=== PATIENT | female | born 1940 | race Caucasian/White ===

== ENCOUNTER 2016-08-17 11:05 | Emergency (ER) | payer OTHER ==
[~2016-08-17] VITALS: Ht 157.5 cm; Wt 61.0 kg
[~2016-08-17 11:05] MED LIST: ACID1GRA2 PO; ASPI-515 PO; BISA5TAB38 PO; BUPR100T11; BUPR150T6 PO; CALC-440 PO; CARV3.1212 PO; CLON-364 PO; CYCL5TAB; DIAZ10TA4 PO; GABA100C8 PO; GLYC2TAB13 PO; GUAI100G2 PO; HYDR1TAB PO; HYOS0.127; IRON18TA PO; LEVO500T33 PO; LISI-167 PO; LISI5TAB7 PO; MAGN400T26 PO; METF850T2 PO; MULT-658 PO; OMEP-110 PO; PNV1TAB.5; PRAM1TAB5 PO; ROPI0.5T2 PO; SENN15TA10; SIMV20TA3 PO; [UNRECOGNIZED DRUG - REMARK] PO
[2016-08-17 11:07] VITALS: BP 128/70
== END 2016-08-17 12:45 | disposition home or self-care (01) ==
LOC: ED 12:15
DX: S29.012A Strain of muscle and tendon of back wall of thorax, initial encounter (principal); S20.211A Contusion of right front wall of thorax, initial encounter; J44.9 Chronic obstructive pulmonary disease, unspecified; I10 Essential (primary) hypertension; E11.9 Type 2 diabetes mellitus without complications; I25.2 Old myocardial infarction; W01.0XXA Fall on same level from slipping, tripping and stumbling without subsequent striking against object, initial encounter; Y93.89 Activity, other specified; Y92.009 Unspecified place in unspecified non-institutional (private) residence as the place of occurrence of the external cause; Y99.9 Unspecified external cause status
CPT/HCPCS: 72072; 99284

== ENCOUNTER 2017-02-03 19:13 | Emergency (ER) | payer OTHER ==
[~2017-02-03] VITALS: Ht 160 cm; Wt 56.0 kg
[~2017-02-03 19:13] MED LIST changes: -ACID1GRA2 PO; +ACID1GRA3 PO; +GABA-826 PO; -GABA100C8 PO; -GLYC2TAB13 PO; +GLYC2TAB21 PO; +HYOS0.1268; -HYOS0.127; -LEVO500T33 PO; +LEVO500T47 PO
[2017-02-03] MEDS ORDERED: ONDANSETRON 2MG/ML, 2ML IVPush ONE (19:30)
[2017-02-03] MEDS ORDERED: SODIUM CHLORIDE FLUSH 10ML SYR IVF ONE (19:30)
[2017-02-03] MEDS ORDERED: ONDANSETRON 2MG/ML, 2ML ONE (19:41)
[2017-02-03] MEDS ORDERED: morphine SULFATE 10 MG/ML, 1ML ONE ×2 (19:41→20:44)
[2017-02-03 19:42] LABS: HEMATOCRIT 39.1 % (34.6-47.8); HEMOGLOBIN 12.5 g/dL (11.7-16.4); WHITE BLOOD COUNT 9.3 x10^3/uL (3.4-10)
[2017-02-03] MEDS: MORPHINE SULFATE 4 MG/ML, 1ML IVPush PRN ×2 (19:48→20:50)
[2017-02-03 20:14] LABS: ASPARTATE AMINO TRANSFERASE 12 U/L (15-37); BLOOD UREA NITROGEN 15 mg/dL (7-18)
[2017-02-03] MEDS ORDERED: METHOCARBAMOL 750 MG TABLET ONE (20:48)
[2017-02-03] MEDS ORDERED: METHOCARBAMOL 500 MG TABLET PO ONE (21:00)
[2017-02-03 22:13] VITALS: BP 162/67
== END 2017-02-03 23:11 | disposition home or self-care (01) ==
LOC: ED 22:01
DX: N30.00 Acute cystitis without hematuria (principal); M54.41 Lumbago with sciatica, right side; I10 Essential (primary) hypertension; E11.9 Type 2 diabetes mellitus without complications; J44.9 Chronic obstructive pulmonary disease, unspecified; I25.2 Old myocardial infarction; Z86.73 Personal history of transient ischemic attack (TIA), and cerebral infarction without residual deficits
CPT/HCPCS: 36415; 80053; 81001; 85025; 87077; 87086; 87186; 96374; 96375; 96376; 99284; J2405; J7512

== ENCOUNTER → 2017-06-11 | Outpatient (CLI) | payer OTHER | END | disposition home or self-care (01) | LOC: CFH 07:39 | PROVIDERS: ATTEND Family Medicine | DX: Z12.31 Encounter for screening mammogram for malignant neoplasm of breast (principal) | CPT/HCPCS: 77067 ==

== ENCOUNTER 2018-01-02 18:41 | Inpatient (IN) | payer OTHER ==
[~2018-01-02] VITALS: Ht 160 cm; Wt 52.3 kg
[~2018-01-02 18:41] MED LIST changes: -CLON-364 PO; +CLON0.5T11 PO; +METF850T10 PO; -METF850T2 PO
[2018-01-02] MEDS ORDERED: ASPIRIN 81 MG TABLET CHEW ONE (19:17)
[2018-01-02] MEDS ORDERED: MORPHINE SULFATE 4 MG/ML, 1ML IVPush PRN (19:30)
[2018-01-02] MEDS ORDERED: SODIUM CHLORIDE FLUSH 10ML SYR IVF ONE (19:30)
[2018-01-02] MEDS ORDERED: ASPIRIN 81 MG TABLET CHEW PO ONE (19:30)
[2018-01-02] MEDS ORDERED: LISI5TAB7 PO (19:31)
[2018-01-02] MEDS ORDERED: LOSARTAN (19:31)
[2018-01-02] MEDS ORDERED: AMLODIPINE (19:31)
[2018-01-02 19:41] LABS: BASOPHILS # (AUTO) 0.06 x10^3/uL (0-0.1); BASOPHILS % (AUTO) 1 % (0-1); EOSINOPHILS # (AUTO) 0.33 x10^3/uL (0-0.4); EOSINOPHILS % (AUTO) 4 % (1-7); LYMPHOCYTES # (AUTO) 2.24 x10^3/uL (1-3.4); LYMPHOCYTES % (AUTO) 27 % (22-44); MD NO; MEAN CORPUSCULAR HEMOGLOBIN 30.9 pg (27.0-34.8); MEAN CORPUSCULAR HGB CONC 33.4 g/dL (32.4-35.8); MEAN CORPUSCULAR VOLUME 92.4 fL (80-100); MEAN PLATELET VOLUME 8.9 fL (7.4-10.4); MONOCYTES % (AUTO) 7 % (2-9); NEUTROPHILS # (AUTO) 5.18 x10^3/uL (1.8-6.8); NEUTROPHILS % (AUTO) 62 % (42-75); PLATELET COUNT 240 x10^3/uL (130-400); RED BLOOD COUNT 4.14 x10^6/uL (3.82-5.3); RED CELL DISTRIBUTION WIDTH 15.5 % (9.6-15.2)
[2018-01-02 19:54] LABS: ALANINE AMINOTRANSFERASE 18 U/L (12-78); ALBUMIN 3.5 g/dL (3.4-5.0); ANION GAP 4 mmol/L (5-15); CALCIUM 8.6 mg/dL (8.5-10.1); CHLORIDE 107 mmol/L (98-107); CREATININE 0.89 mg/dL (0.55-1.02)
[2018-01-02 19:57] LABS: ALKALINE PHOSPHATASE 55 U/L (45-117); BILIRUBIN,TOTAL 0.3 mg/dL (0.2-1.0); TOTAL PROTEIN 7.3 g/dL (6.4-8.2); TROPONIN I < 0.015 ng/mL (0.000-0.045)
[2018-01-02 21:00] VITALS: BP 144/65
[2018-01-02] MEDS ORDERED: BISACODYL 10 MG SUPP PR PRN (21:00)
[2018-01-02] MEDS: HEPARIN 5,000 UNITS/ML, 1ML SQ SCH (21:00)
[2018-01-02] MEDS: metFORMIN 850 MG TABLET PO SCH (21:00)
[2018-01-02] MEDS ORDERED: ACETAMINOPHEN 325 MG TABLET PO PRN (21:00)
[2018-01-02] MEDS ORDERED: ONDANSETRON ODT 4 MG PO PRN (21:00)
[2018-01-02] MEDS ORDERED: SIMVASTATIN 20 MG TABLET PO SCH (21:00)
[2018-01-02] MEDS ORDERED: NICOTINE 7 MG/24 HR PATCH.TD24 TD SCH (21:00)
[2018-01-02] MEDS ORDERED: ROPINIROLE HCL 0.5 MG PO SCH (21:00)
[2018-01-02] MEDS ORDERED: POLYETHYLENE GLYCOL 17 GM PACKET PO PRN (21:00)
[2018-01-02] MEDS ORDERED: morphine SULFATE 10 MG/ML, 1ML IVPush PRN (21:00)
[2018-01-02 21:24] LABS: HEMOGLOBIN A1C 7.1 % (4.2-6.3)
[2018-01-02] MEDS: PRAMIPEXOLE 0.5MG TABLET PO SCH (22:24)
[2018-01-02] MEDS: SODIUM CHLORIDE FLUSH 10ML SYR IVF SCH (22:25)
[2018-01-02] MEDS: CARVEDILOL 3.125 MG TABLET PO SCH (22:25)
[2018-01-03] VITALS (9 sets, daily range): BP systolic 88–119; BP diastolic 42–62
[2018-01-03] MEDS: NITROGLYCERIN 0.4 MG BOTTLE (25 TABS) SL PRN ×2 (00:28→00:34)
[2018-01-03 01:21] LABS: TROPONIN I < 0.015 ng/mL (0.000-0.045)
[2018-01-03] MEDS: HEPARIN 5,000 UNITS/ML, 1ML SQ SCH ×2 (05:00→12:32)
[2018-01-03 07:20] LABS: BASOPHILS # (AUTO) 0.04 x10^3/uL (0-0.1); BASOPHILS % (AUTO) 1 % (0-1); EOSINOPHILS % (AUTO) 4 % (1-7); LYMPHOCYTES # (AUTO) 2.03 x10^3/uL (1-3.4); LYMPHOCYTES % (AUTO) 29 % (22-44); MD NO; MEAN CORPUSCULAR HEMOGLOBIN 30.7 pg (27.0-34.8); MEAN CORPUSCULAR HGB CONC 32.6 g/dL (32.4-35.8); MEAN CORPUSCULAR VOLUME 94.2 fL (80-100); MEAN PLATELET VOLUME 8.5 fL (7.4-10.4); MONOCYTES # (AUTO) 0.46 x10^3/uL (0.2-0.8); MONOCYTES % (AUTO) 7 % (2-9); NEUTROPHILS # (AUTO) 4.09 x10^3/uL (1.8-6.8); NEUTROPHILS % (AUTO) 59 % (42-75); PLATELET COUNT 211 x10^3/uL (130-400); RED BLOOD COUNT 3.84 x10^6/uL (3.82-5.3); RED CELL DISTRIBUTION WIDTH 15.9 % (9.6-15.2)
[2018-01-03 07:32] LABS: ALBUMIN 2.9 g/dL (3.4-5.0); ANION GAP 7 mmol/L (5-15); CALCIUM 8.6 mg/dL (8.5-10.1); CHLORIDE 109 mmol/L (98-107)
[2018-01-03 07:37] LABS: ALANINE AMINOTRANSFERASE 14 U/L (12-78); ALKALINE PHOSPHATASE 47 U/L (45-117); BILIRUBIN,TOTAL 0.4 mg/dL (0.2-1.0); CREATININE 0.78 mg/dL (0.55-1.02); TOTAL PROTEIN 6.3 g/dL (6.4-8.2); TROPONIN I < 0.015 ng/mL (0.000-0.045)
[2018-01-03] MEDS ORDERED: REGADENOSON 0.4 MG/5 ML SYRINGE ONE (08:47)
[2018-01-03] MEDS ORDERED: ASPIRIN 81 MG TABLET CHEW PO SCH (09:00)
[2018-01-03] MEDS ORDERED: OMEPRAZOLE 20 MG CAPSULE.DR PO SCH (09:00)
[2018-01-03] MEDS ORDERED: LISINOPRIL 5 MG TABLET PO SCH (09:00)
[2018-01-03] MEDS ORDERED: GLYCOPYRROLATE 1 MG TABLET PO SCH (09:00)
[2018-01-03] MEDS ORDERED: SENNA/DOCUSATE TABLET PO SCH (09:00)
[2018-01-03] MEDS: metFORMIN 850 MG TABLET PO SCH (10:40)
[2018-01-03] MEDS: CARVEDILOL 3.125 MG TABLET PO SCH (10:40)
[2018-01-03] MEDS: SODIUM CHLORIDE FLUSH 10ML SYR IVF SCH (10:41)
[2018-01-03] MEDS: PRAMIPEXOLE 0.5MG TABLET PO SCH (10:43)
[2018-01-03] MEDS ORDERED: ROPINIROLE 1MG TABLET PO SCH ×2 (11:00→13:00)
[2018-01-03] MEDS ORDERED: KETOROLAC 30 MG/1 ML IVPush PRN (13:30)
[2018-01-03] MEDS ORDERED: IBUP-1222 PO (15:00)
== END 2018-01-03 16:51 | disposition home or self-care (01) | DRG 313 ==
LOC: ED 19:40 → EDIP 20:23 → 4EST 21:31
PROVIDERS: ADMIT Internal Medicine; ATTEND Internal Medicine
DX: R07.89 Other chest pain (principal); I69.351 Hemiplegia and hemiparesis following cerebral infarction affecting right dominant side; R47.01 Aphasia; D50.9 Iron deficiency anemia, unspecified; E11.9 Type 2 diabetes mellitus without complications; E78.5 Hyperlipidemia, unspecified; F17.200 Nicotine dependence, unspecified, uncomplicated; I69.391 Dysphagia following cerebral infarction; G25.81 Restless legs syndrome; I10 Essential (primary) hypertension; I25.10 Atherosclerotic heart disease of native coronary artery without angina pectoris; I25.2 Old myocardial infarction; J44.9 Chronic obstructive pulmonary disease, unspecified; Z66 Do not resuscitate; Z80.3 Family history of malignant neoplasm of breast; Z80.8 Family history of malignant neoplasm of other organs or systems; Z82.49 Family history of ischemic heart disease and other diseases of the circulatory system; Z83.3 Family history of diabetes mellitus; Z98.42 Cataract extraction status, left eye; Z71.6 Tobacco abuse counseling; Z79.899 Other long term (current) drug therapy
CPT/HCPCS: 36415; 71045; 78452; 80053; 83036; 83880; 84484; 85025; 93005; 93017; 99285; G0378; J1885; J2785; A9502; C9898

== ENCOUNTER 2019-01-02 15:48 | Inpatient (IN) | payer MEDICARE, OTHER ==
[~2019-01-02] VITALS: Ht 160 cm; Wt 50.0 kg
[~2019-01-02 15:48] MED LIST changes: +AMLODIPINE; +IBUP-1222 PO; +LOSARTAN
--- NOTE | 2019-01-02 16:37 | NUR ---
PT TO ROOM FROM TRIAGE VIA WHEELCHAIR. PT AMBULATORY WITH SHUFFELED GAIT TO CHANTEL Willis SINGLE ASSIST. FAMILY PRESENT WHO REPORT INCREASING WEAKNESS X TODAY. "WE WENT TO THE STORE TO BUY TILE AND WHEN WE LEFT I HAD TO PUSH HER OUT ON HER WALKER. WHEN WE GOT HOME I FOUND HER LAYING ON THE FLOOR. SHE SAID SHE DIDN'T FALL- I JUST THINK SHE WAS TOO WEAK TO GET UP AND TO HER ROOM". PT ENDORSES FAMILY'S STATEMENTS. PT DENIES CP/SOB/RECENT FALL/URINARY SYMPTOMS/N/V. +R LEG PAIN, BASELINE D/T HX OF RESTLESS LEG SYNDROME. FREQUENT COUGH NOTED, PT DENIES INCREASE IN COUGH OR PRODUCTIVE FROM BASELINE, "SHE IS A SMOKER- SHE HAS HAD THIS SAME COUGH FOR SIX YEARS". +PULM/CARDIAC/CVA HX. IV ESTABLISHED. BC X1 DRAWN WITH IV START. LAB IN TO DRAW. STRAIGHT CATH COMPLETED, COLLECTED AND WALKED TO LAB. PT REFUSING RECTAL TEMP. BP/SPO2/ECG MONITORING IN PLACE. NSR ON MONITOR. EKG COMPLETED IN TRIAGE. FAMILY AT BEDSIDE. FAMILY/PT UDPATED TO POC (RESULTS/RECHECK/DISPO) AND DEMONSTRATE UNDERSTANDING.
[2019-01-02 16:41] LABS: MEAN CORPUSCULAR HEMOGLOBIN 30.4 pg (27.0-34.8); MEAN CORPUSCULAR HGB CONC 32.4 g/dL (32.4-35.8); MEAN CORPUSCULAR VOLUME 93.7 fL (80-100); MEAN PLATELET VOLUME 7.8 fL (7.4-10.4); PLATELET COUNT 357 x10^3/uL (130-400); RED BLOOD COUNT 4.17 x10^6/uL (3.82-5.3); RED CELL DISTRIBUTION WIDTH 14.4 % (9.6-15.2)
[2019-01-02 16:45] LABS: CULTURE INDICATED? YES; MICROSCOPIC AUTO
[2019-01-02] MEDS ORDERED: SIMV5TAB14 PO (16:53)
[2019-01-02] MEDS ORDERED: CLOP75TA PO (16:53)
[2019-01-02] MEDS ORDERED: IRON PO (16:53)
[2019-01-02] MEDS ORDERED: GABA300C10 PO (16:53)
[2019-01-02] MEDS ORDERED: CHOL500020 PO (16:53)
[2019-01-02 16:54] LABS: ALANINE AMINOTRANSFERASE 15 U/L (12-78); ALBUMIN 3.2 g/dL (3.4-5.0); ANION GAP 5 mmol/L (5-15); CALCIUM 8.8 mg/dL (8.5-10.1); CHLORIDE 105 mmol/L (98-107)
[2019-01-02 16:56] LABS: ALKALINE PHOSPHATASE 64 U/L (45-117); BILIRUBIN,TOTAL 0.7 mg/dL (0.2-1.0); TOTAL PROTEIN 7.2 g/dL (6.4-8.2)
[2019-01-02 17:02] LABS: MD YES
[2019-01-02 17:04] LABS: BAND#(MANUAL) 1.81 x10^3/uL; BANDS%(MANUAL) 9 % (0-7); LYMPH#(MANUAL) 1.01 x10^3/uL (1-3.4); LYMPHS% (MANUAL) 5 % (22-44); MONOS#(MANUAL) 1.01 x10^3/uL (0.3-2.7); MONOS% (MANUAL) 5 % (2-9); SEG#(MANUAL) 16.28 x10^3/uL (1.8-6.8); SEGS% (MANUAL) 81 % (42-75)
[2019-01-02 17:05] LABS: <PLATELET ESTIMATE> ADEQUATE; <PLT MORPHOLOGY> NORMAL PLT MORPH; ANISOCYTOSIS 1+
[2019-01-02] MEDS ORDERED: CEFTRIAXONE PMX 1GM/50ML 50 ML ONE (17:19)
--- NOTE | 2019-01-02 17:24 | NUR ---
ABX INITIATED. BC X2 DRAWN PRIOR TO ADMIN. POC IS ADMIT, PT/FAMILY UPDATED AND DEMONSTRATE UNDERSTANDING.
[2019-01-02] MEDS ORDERED: PLEASE ENTER WEIGHT MC SCH (17:30)
[2019-01-02] MEDS ORDERED: CEFTRIAXONE PMX 1GM/50ML 50 ML IV ONE (17:30)
--- NOTE | 2019-01-02 17:53 | NUR ---
REPORT TO ALVA GRESHAM ON FLOOR
[2019-01-02] MEDS ORDERED: POLYETHYLENE GLYCOL 17 GM PACKET PO PRN (18:00)
[2019-01-02] MEDS: INSULIN REGULAR 100 UNITS/ML, 3ML VIAL SQ-INSULIN SCH ×2 (18:00→21:00)
[2019-01-02] MEDS ORDERED: ACETAMINOPHEN 325 MG TABLET PO PRN (18:00)
[2019-01-02] MEDS ORDERED: DEXTROSE 50%, 50ML SYRINGE IVPush PRN (18:00)
[2019-01-02] MEDS ORDERED: ONDANSETRON 2MG/ML, 2ML IVPush PRN (18:00)
[2019-01-02] MEDS: LACTATED RINGERS 1,000 ML IV SCH (18:00)
[2019-01-02] MEDS ORDERED: GLUCAGON 1 MG IM PRN (18:00)
[2019-01-02] MEDS: CEFTRIAXONE PMX 1GM/50ML 50 ML IV SCH (18:00)
[2019-01-02] MEDS ORDERED: DOCUSATE 100 MG CAPSULE PO PRN (18:00)
[2019-01-02] MEDS ORDERED: LABETALOL 5MG/ML, 20ML IVPush PRN (18:00)
[2019-01-02] MEDS ORDERED: AMLODIPINE 5 MG TABLET PO ONE (18:00)
[2019-01-02] MEDS ORDERED: DEXTROSE 4 GM TAB.CHEW PO PRN (18:00)
[2019-01-02] MEDS ORDERED: ALBUTEROL/IPRATROPIUM 2.5MG/0.5MG, 3 ML ONE (18:07)
[2019-01-02] MEDS ORDERED: POTASSIUM CHLORIDE 20 MEQ TAB.ER.PRT PO ONE (18:30)
[2019-01-02 19:04] VITALS: BP 124/62
[2019-01-02] MEDS: NICOTINE 7 MG/24 HR PATCH.TD24 TD SCH (19:32)
[2019-01-02] MEDS: ENOXAPARIN 40 MG/0.4 ML SQ SCH (19:32)
[2019-01-02] MEDS: ROPINIROLE 0.5MG TABLET PO SCH ×2 (19:32→21:00)
[2019-01-02 21:20] VITALS: BP 120/68
[2019-01-02] MEDS: SIMVASTATIN 40 MG TABLET PO SCH (21:31)
[2019-01-02] MEDS: PRAMIPEXOLE 0.5MG TABLET PO SCH (21:31)
[2019-01-02] MEDS: SODIUM CHLORIDE FLUSH 10ML SYR IVF SCH (21:31)
[2019-01-02] MEDS: CARVEDILOL 3.125 MG TABLET PO SCH (21:31)
[2019-01-02] MEDS: GLYCOPYRROLATE 1 MG TABLET PO SCH (21:32)
[2019-01-03 03:13] VITALS: BP 111/66
[2019-01-03 04:56] LABS: MEAN CORPUSCULAR HEMOGLOBIN 30.4 pg (27.0-34.8); MEAN CORPUSCULAR VOLUME 92.4 fL (80-100); MEAN PLATELET VOLUME 7.3 fL (7.4-10.4); PLATELET COUNT 282 x10^3/uL (130-400); RED BLOOD COUNT 3.63 x10^6/uL (3.82-5.3); RED CELL DISTRIBUTION WIDTH 14.3 % (9.6-15.2)
[2019-01-03 05:09] LABS: ALBUMIN 2.5 g/dL (3.4-5.0); ANION GAP 5 mmol/L (5-15); CALCIUM 8.3 mg/dL (8.5-10.1); CHLORIDE 105 mmol/L (98-107)
[2019-01-03 05:12] LABS: ALANINE AMINOTRANSFERASE 11 U/L (12-78); ALKALINE PHOSPHATASE 53 U/L (45-117); BILIRUBIN,TOTAL 0.9 mg/dL (0.2-1.0); CREATININE 0.94 mg/dL (0.55-1.02)
[2019-01-03 05:17] LABS: MD YES
[2019-01-03 05:19] LABS: <PLATELET ESTIMATE> ADEQUATE; <PLT MORPHOLOGY> NORMAL PLT MORPH; ANISOCYTOSIS 1+; BAND#(MANUAL) 0.47 x10^3/uL; BANDS%(MANUAL) 2 % (0-7); LYMPHS% (MANUAL) 9 % (22-44); MONOS#(MANUAL) 0.93 x10^3/uL (0.3-2.7); MONOS% (MANUAL) 4 % (2-9); REACTIVE LYMPHS # (MANUAL) 0.47 x10^3/uL (0-0); REACTIVE LYMPHS % (MANUAL) 2 % (0-0); SEG#(MANUAL) 19.34 x10^3/uL (1.8-6.8); SEGS% (MANUAL) 83 % (42-75)
[2019-01-03 05:20] LABS: OVALOCYTES 1+
[2019-01-03] MEDS: INSULIN REGULAR 100 UNITS/ML, 3ML VIAL SQ-INSULIN SCH ×4 (07:00→20:24)
[2019-01-03] MEDS: LACTATED RINGERS 1,000 ML IV SCH (07:20)
[2019-01-03 07:34] VITALS: BP 113/61
[2019-01-03 08:37] LABS: TROPONIN I < 0.015 ng/mL (0.000-0.045)
[2019-01-03] MEDS ORDERED: GABAPENTIN 300 MG CAPSULE PO SCH (09:00)
[2019-01-03] MEDS ORDERED: MAGNESIUM SULFATE PMX 4GM/100M 100 ML IV ONE (09:00)
[2019-01-03] MEDS: GLYCOPYRROLATE 1 MG TABLET PO SCH ×2 (09:13→21:20)
[2019-01-03] MEDS: ROPINIROLE 0.5MG TABLET PO SCH ×3 (09:13→21:19)
[2019-01-03] MEDS: CHOLECALCIFEROL 1,000 UNIT TABLET PO SCH (09:14)
[2019-01-03] MEDS: CARVEDILOL 3.125 MG TABLET PO SCH ×2 (09:14→21:19)
[2019-01-03] MEDS: CLOPIDOGREL 75 MG TABLET PO SCH (09:14)
[2019-01-03] MEDS: LISINOPRIL 5 MG TABLET PO SCH (09:15)
[2019-01-03] MEDS: PRAMIPEXOLE 0.5MG TABLET PO SCH ×2 (09:15→21:20)
[2019-01-03] MEDS: OMEPRAZOLE 20 MG CAPSULE.DR PO SCH (09:15)
[2019-01-03] MEDS: SODIUM CHLORIDE FLUSH 10ML SYR IVF SCH ×2 (09:25→21:20)
[2019-01-03] MEDS: HYDROcodone/APAP 5/325 TABLET PO PRN (12:41)
[2019-01-03 13:01] VITALS: BP 94/55
--- NOTE | 2019-01-03 13:02 | NUR ---
REC: Chopped/NTL; orange sheet posted in room Addendum: 01/03/19 at 1303 by Angela MORALES Amended: Links added.
[2019-01-03] MEDS: CEFTRIAXONE PMX 1GM/50ML 50 ML IV SCH (17:24)
[2019-01-03] MEDS: ENOXAPARIN 40 MG/0.4 ML SQ SCH (17:32)
[2019-01-03] MEDS: NICOTINE 7 MG/24 HR PATCH.TD24 TD SCH (17:51)
[2019-01-03 19:41] VITALS: BP 98/57
[2019-01-03] MEDS ORDERED: ROPINIROLE 1MG TABLET ONE (20:27)
[2019-01-03 20:31] VITALS: BP 105/55
[2019-01-03] MEDS: SIMVASTATIN 40 MG TABLET PO SCH (21:20)
[2019-01-04 01:06] VITALS: BP 112/59
[2019-01-04 05:02] LABS: BASOPHILS # (AUTO) 0.03 x10^3/uL (0-0.1); BASOPHILS % (AUTO) 0 % (0-1); EOSINOPHILS # (AUTO) 0.42 x10^3/uL (0-0.4); EOSINOPHILS % (AUTO) 3 % (1-7); LYMPHOCYTES # (AUTO) 1.28 x10^3/uL (1-3.4); LYMPHOCYTES % (AUTO) 8 % (22-44); MD NO; MEAN CORPUSCULAR HEMOGLOBIN 30.6 pg (27.0-34.8); MEAN CORPUSCULAR HGB CONC 32.5 g/dL (32.4-35.8); MEAN CORPUSCULAR VOLUME 94.3 fL (80-100); MEAN PLATELET VOLUME 8.2 fL (7.4-10.4); MONOCYTES % (AUTO) 5 % (2-9); NEUTROPHILS % (AUTO) 84 % (42-75); PLATELET COUNT 260 x10^3/uL (130-400); RED BLOOD COUNT 3.59 x10^6/uL (3.82-5.3); RED CELL DISTRIBUTION WIDTH 14.6 % (9.6-15.2)
[2019-01-04 05:04] LABS: ANION GAP 7 mmol/L (5-15); CHLORIDE 103 mmol/L (98-107)
[2019-01-04 05:05] LABS: CREATININE 1.02 mg/dL (0.55-1.02)
[2019-01-04] MEDS: HYDROcodone/APAP 5/325 TABLET PO PRN (05:35)
[2019-01-04] MEDS: INSULIN REGULAR 100 UNITS/ML, 3ML VIAL SQ-INSULIN SCH ×4 (07:00→21:00)
[2019-01-04 07:15] VITALS: BP 99/56
[2019-01-04] MEDS: CHOLECALCIFEROL 1,000 UNIT TABLET PO SCH (08:11)
[2019-01-04] MEDS: CLOPIDOGREL 75 MG TABLET PO SCH (08:12)
[2019-01-04] MEDS: ROPINIROLE 0.5MG TABLET PO SCH ×3 (08:12→20:36)
[2019-01-04] MEDS: GLYCOPYRROLATE 1 MG TABLET PO SCH ×2 (08:12→20:28)
[2019-01-04] MEDS: LISINOPRIL 5 MG TABLET PO SCH (08:12)
[2019-01-04] MEDS: PRAMIPEXOLE 0.5MG TABLET PO SCH ×2 (08:13→20:27)
[2019-01-04] MEDS: CARVEDILOL 3.125 MG TABLET PO SCH ×2 (08:14→20:27)
[2019-01-04] MEDS: OMEPRAZOLE 20 MG CAPSULE.DR PO SCH (08:14)
[2019-01-04] MEDS: SODIUM CHLORIDE FLUSH 10ML SYR IVF SCH ×2 (08:24→20:37)
[2019-01-04] MEDS: GABAPENTIN 100 MG CAPSULE PO SCH (09:14)
[2019-01-04] MEDS: DOXYCYCLINE 100MG TABLET PO SCH ×2 (09:14→20:28)
[2019-01-04 10:17] LABS: HEMOGLOBIN A1C 6.9 % (4.2-6.3)
[2019-01-04 13:55] VITALS: BP 108/56
[2019-01-04] MEDS: CEFTRIAXONE PMX 1GM/50ML 50 ML IV SCH (18:00)
[2019-01-04] MEDS: NICOTINE 7 MG/24 HR PATCH.TD24 TD SCH (18:00)
[2019-01-04] MEDS: ENOXAPARIN 40 MG/0.4 ML SQ SCH (18:00)
[2019-01-04 20:14] VITALS: BP 114/59
[2019-01-04] MEDS: SIMVASTATIN 40 MG TABLET PO SCH (20:27)
[2019-01-05 00:59] VITALS: BP 109/56
[2019-01-05] MEDS: INSULIN REGULAR 100 UNITS/ML, 3ML VIAL SQ-INSULIN SCH ×2 (07:00→11:00)
[2019-01-05 07:37] VITALS: BP 154/63
[2019-01-05 09:34] LABS: BASOPHILS # (AUTO) 0.08 x10^3/uL (0-0.1); BASOPHILS % (AUTO) 1 % (0-1); EOSINOPHILS # (AUTO) 0.23 x10^3/uL (0-0.4); EOSINOPHILS % (AUTO) 2 % (1-7); HEMOGRAM NOTE RECHECKED; LYMPHOCYTES # (AUTO) 1.04 x10^3/uL (1-3.4); LYMPHOCYTES % (AUTO) 10 % (22-44); MD NO; MEAN CORPUSCULAR HEMOGLOBIN 29.9 pg (27.0-34.8); MEAN CORPUSCULAR HGB CONC 32.3 g/dL (32.4-35.8); MEAN CORPUSCULAR VOLUME 92.6 fL (80-100); MONOCYTES # (AUTO) 0.74 x10^3/uL (0.2-0.8); MONOCYTES % (AUTO) 7 % (2-9); NEUTROPHILS # (AUTO) 7.91 x10^3/uL (1.8-6.8); NEUTROPHILS % (AUTO) 79 % (42-75); PLATELET COUNT 292 x10^3/uL (130-400); RED BLOOD COUNT 3.96 x10^6/uL (3.82-5.3); RED CELL DISTRIBUTION WIDTH 14.4 % (9.6-15.2)
[2019-01-05] MEDS: CHOLECALCIFEROL 1,000 UNIT TABLET PO SCH (10:32)
[2019-01-05] MEDS: ROPINIROLE 0.5MG TABLET PO SCH (10:32)
[2019-01-05] MEDS: GLYCOPYRROLATE 1 MG TABLET PO SCH (10:32)
[2019-01-05] MEDS: CARVEDILOL 3.125 MG TABLET PO SCH (10:33)
[2019-01-05] MEDS: PRAMIPEXOLE 0.5MG TABLET PO SCH (10:33)
[2019-01-05] MEDS: OMEPRAZOLE 20 MG CAPSULE.DR PO SCH (10:33)
[2019-01-05] MEDS: CLOPIDOGREL 75 MG TABLET PO SCH (10:33)
[2019-01-05] MEDS: DOXYCYCLINE 100MG TABLET PO SCH (10:33)
[2019-01-05] MEDS: GABAPENTIN 100 MG CAPSULE PO SCH (10:34)
[2019-01-05] MEDS: SODIUM CHLORIDE FLUSH 10ML SYR IVF SCH (10:34)
[2019-01-05] MEDS: LISINOPRIL 5 MG TABLET PO SCH (10:34)
--- NOTE | 2019-01-05 10:54 | NUR ---
REC: chopped/NTL; free water protocol Addendum: 01/05/19 at 1055 by Angela MORALES Amended: Links added.
[2019-01-05] MEDS ORDERED: DOXY100T PO (11:52)
[2019-01-05] MEDS ORDERED: CEFD300C37 PO (11:52)
[2019-01-05 13:18] VITALS: BP 123/68
== END 2019-01-05 15:20 | disposition home health service (06) | DRG 193 ==
LOC: ED 17:48 → 3N 18:16 → DCLOUNGE 01-05 15:03
PROVIDERS: ADMIT Internal Medicine; ATTEND Internal Medicine
DX: J18.9 Pneumonia, unspecified organism (principal); J96.20 Acute and chronic respiratory failure, unspecified whether with hypoxia or hypercapnia; N39.0 Urinary tract infection, site not specified; J44.0 Chronic obstructive pulmonary disease with (acute) lower respiratory infection; B96.1 Klebsiella pneumoniae [K. pneumoniae] as the cause of diseases classified elsewhere; M54.30 Sciatica, unspecified side; B96.89 Other specified bacterial agents as the cause of diseases classified elsewhere; E11.65 Type 2 diabetes mellitus with hyperglycemia; E78.5 Hyperlipidemia, unspecified; E83.42 Hypomagnesemia; E87.6 Hypokalemia; R13.10 Dysphagia, unspecified; F17.200 Nicotine dependence, unspecified, uncomplicated; G25.81 Restless legs syndrome; I10 Essential (primary) hypertension; I25.10 Atherosclerotic heart disease of native coronary artery without angina pectoris; I25.2 Old myocardial infarction; I69.320 Aphasia following cerebral infarction; I69.391 Dysphagia following cerebral infarction
CPT/HCPCS: 36415; 71045; 80048; 80053; 81001; 82962; 83036; 83735; 84100; 84484; 85025; 87040; 87070; 87077; 87086; 87186; 87205; 93005; 99285; G0378; J0696; J1650; J3475; J7120

== ENCOUNTER 2019-07-11 10:14 | Outpatient (CLI) | payer MEDICARE ==
[~2019-07-11 10:14] MED LIST changes: +CEFD300C37 PO; +CHOL500020 PO; +CLON-364 PO; -CLON0.5T11 PO; +CLOP75TA PO; +DOXY100T PO; +GABA300C10 PO; +IRON PO; -ROPI0.5T2 PO; +ROPI0.5T4 PO; +SIMV20TA19 PO; -SIMV20TA3 PO; +SIMV5TAB14 PO
== END 2019-07-11 23:59 | disposition home or self-care (01) ==
LOC: RAD 10:14
PROVIDERS: ATTEND Family Medicine
DX: R60.0 Localized edema (principal)

== ENCOUNTER → 2020-03-22 | Outpatient (CLI) | payer MEDICARE ==
[~2020-03-22] MED LIST changes: -BUPR150T6 PO; +BUPR150T7 PO; +FERR-51 PO; +FURO-93 PO; +MAGN400T9 PO; +MAGN70TA2 PO; +POTA20TA6 PO
== END | disposition home or self-care (01) ==
LOC: RAD 10:41
PROVIDERS: ATTEND Physician Assistant Medical
DX: R60.9 Edema, unspecified (principal)
CPT/HCPCS: 93970

== ENCOUNTER 2020-08-02 14:11 | Observation (INO) | payer MEDICARE ==
[~2020-08-02] VITALS: Ht 154.9 cm; Wt 47.6 kg
[~2020-08-02 14:11] MED LIST changes: +AMOX600S36 PO; -ASPI-515 PO; +ASPI-963 PO; +BUPR150T22 PO; -BUPR150T7 PO; +CARB1TAB46 PO; +CARV6.2512 PO; +CHOL10003 PO; +FAMO40TA61 PO; +MELA3TAB31 PO; +MIRT15TA94 PO; +OXYCODONE PO; +PREG25CA PO
--- NOTE | 2020-08-02 14:21 | NUR ---
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 DAUGHTER AT SIDE.
--- NOTE | 2020-08-02 14:24 | NUR ---
PT BROUGHT BACK TO ROOM VIA WC. DAUGHTER AT BS.
[2020-08-02] MEDS ORDERED: SODIUM CHLORIDE 0.9% 1,000ML IVBOLUS ONE (14:30)
[2020-08-02] MEDS ORDERED: FURO-93 PO (14:50)
--- NOTE | 2020-08-02 14:50 | NUR ---
ER LUIS DANIEL WAS IN TO SEE PT. PT RESTING IN [place], AWAKENS TO VOICE. DAUGHTER STATES PT AT BASELINE MENTAL STATUS/ORIENTATION. PER DAUGHTER, PT WAS TAKEN OFF HOSPICE BEGINNING OF JUNE. HAD LABS DONE TO CHECK POTASSIUM LEVEL SHE IS ON LASIX, WAS FOUND TO HAVE LOW HCT LEVEL.
[2020-08-02 14:53] LABS: BASOPHILS % (AUTO) 1 % (0-1); EOSINOPHILS % (AUTO) 2 % (1-7); LYMPHOCYTES % (AUTO) 16 % (22-44); MEAN CORPUSCULAR HEMOGLOBIN 20.1 pg (27.0-34.8); MEAN PLATELET VOLUME 7.9 fL (7.4-10.4); MONOCYTES % (AUTO) 10 % (2-9); NEUTROPHILS % (AUTO) 72 % (42-75); PLATELET COUNT 345 x10^3/uL (130-400); RED BLOOD COUNT 3.79 x10^6/uL (3.82-5.3); RED CELL DISTRIBUTION WIDTH 17.6 % (9.6-15.2)
[2020-08-02 14:55] LABS: MEAN CORPUSCULAR HGB CONC 29.9 g/dL (32.4-35.8)
[2020-08-02 14:58] LABS: ALBUMIN 2.9 g/dL (3.4-5.0); ANION GAP 5 mmol/L (5-15); CALCIUM 8.8 mg/dL (8.5-10.1); CHLORIDE 102 mmol/L (98-107); CREATININE 1.37 mg/dL (0.55-1.02)
[2020-08-02 16:29] VITALS: BP 119/42
[2020-08-02] MEDS ORDERED: SODIUM CHLORIDE FLUSH 10ML SYR IVF PRN (16:30)
[2020-08-02 16:44] VITALS: BP 124/43
[2020-08-02] MEDS ORDERED: OXYcodone IR 5MG TABLET PO PRN (17:00)
[2020-08-02] MEDS ORDERED: POLYETHYLENE GLYCOL 17 GM PACKET PO PRN (17:00)
[2020-08-02] MEDS ORDERED: ENOXAPARIN 40 MG/0.4 ML SQ SCH (17:00)
[2020-08-02] MEDS ORDERED: DOCUSATE 100 MG CAPSULE PO PRN (17:00)
[2020-08-02] MEDS ORDERED: hydrALAzine 20 MG/ML, 1ML IVPush PRN (17:00)
[2020-08-02] MEDS ORDERED: ONDANSETRON ODT 4 MG PO PRN (17:00)
[2020-08-02] MEDS ORDERED: PROMETHAZINE 25 MG/ML, 1ML IM PRN (17:00)
[2020-08-02] MEDS ORDERED: BISACODYL 10 MG SUPP PR PRN (17:00)
[2020-08-02] MEDS ORDERED: ONDANSETRON 2MG/ML, 2ML IVPush PRN (17:00)
--- NOTE | 2020-08-02 17:13 | NUR ---
HOSPITALIST IN TO SEE PT. PT TOLERATING BLOOD TRANSFUSION, NO S/S OF REACTION. RESTING IN [facility]. DAUGHTER REMAINS AT BS.
[2020-08-02 17:22] VITALS: BP 131/48
[2020-08-02 18:01] VITALS: BP 141/63
[2020-08-02 18:57] VITALS: BP 121/62
[2020-08-02] MEDS: GLYCOPYRROLATE 1 MG TABLET PO SCH (20:45)
[2020-08-02] MEDS: ROPINIROLE 0.5MG TABLET PO SCH (20:45)
[2020-08-02] MEDS: PREGABALIN 25 MG CAPSULE PO SCH (20:45)
[2020-08-02] MEDS: CARVEDILOL 3.125 MG TABLET PO SCH (20:45)
[2020-08-02] MEDS: ACETAMINOPHEN 325 MG TABLET PO PRN (20:45)
[2020-08-02] MEDS ORDERED: GABAPENTIN 100 MG CAPSULE PO SCH (21:00)
[2020-08-02] MEDS ORDERED: ROPINIROLE 0.5MG TABLET PO SCH (21:00)
[2020-08-03 01:07] VITALS: BP 113/64
[2020-08-03] MEDS: ACETAMINOPHEN 325 MG TABLET PO PRN (02:18)
[2020-08-03 05:33] LABS: BASOPHILS % (AUTO) 1 % (0-1); EOSINOPHILS % (AUTO) 2 % (1-7); LYMPHOCYTES % (AUTO) 13 % (22-44); MEAN CORPUSCULAR HEMOGLOBIN 21.3 pg (27.0-34.8); MEAN CORPUSCULAR HGB CONC 31.3 g/dL (32.4-35.8); MEAN PLATELET VOLUME 7.6 fL (7.4-10.4); MONOCYTES % (AUTO) 7 % (2-9); NEUTROPHILS % (AUTO) 78 % (42-75); PLATELET COUNT 289 x10^3/uL (130-400); RED BLOOD COUNT 4.05 x10^6/uL (3.82-5.3); RED CELL DISTRIBUTION WIDTH 18.8 % (9.6-15.2)
[2020-08-03 05:43] LABS: CHLORIDE 105 mmol/L (98-107)
[2020-08-03 05:55] LABS: ALANINE AMINOTRANSFERASE 30 U/L (12-78); ALBUMIN 2.7 g/dL (3.4-5.0); ALKALINE PHOSPHATASE 64 U/L (45-117); ANION GAP 4 mmol/L (5-15); BILIRUBIN,TOTAL 0.7 mg/dL (0.2-1.0); CALCIUM 8.4 mg/dL (8.5-10.1); CHOL/HDL RATIO 2.2; CHOLESTEROL, TOTAL 97 mg/dL (140-239); HDL CHOL % 45 % (28-40); HDL CHOLESTEROL (DIRECT) 44 mg/dL (40-60); LDL CHOLESTEROL,CALCULATED 36 mg/dL (54-169); LDL/HDL RATIO 0.8 (0.5-3.0); TOTAL PROTEIN 6.5 g/dL (6.4-8.2); TRIGLYCERIDES 83 mg/dL (50-200); VLDL CHOLESTEROL 17 mg/dL (0-25)
[2020-08-03 06:11] LABS: ANISOCYTOSIS 1+; ECHINOCYTES 1+; HYPOCHROMIA 2+; OVALOCYTES 1+
[2020-08-03 06:12] LABS: <PLATELET ESTIMATE> ADEQUATE; <PLT MORPHOLOGY> NORMAL PLT MORPH; TEAR DROPS 1+
[2020-08-03 06:13] LABS: MICROCYTOSIS 2+
[2020-08-03 06:38] VITALS: BP 125/55
[2020-08-03] MEDS: CARVEDILOL 3.125 MG TABLET PO SCH (07:58)
[2020-08-03] MEDS: PREGABALIN 25 MG CAPSULE PO SCH (08:00)
[2020-08-03] MEDS: GLYCOPYRROLATE 1 MG TABLET PO SCH (08:01)
[2020-08-03] MEDS: ROPINIROLE 0.5MG TABLET PO SCH (08:01)
[2020-08-03] MEDS ORDERED: FUROSEMIDE 20 MG TABLET PO SCH (09:00)
[2020-08-03 13:25] VITALS: BP 115/53
== END 2020-08-03 14:35 | disposition home or self-care (01) ==
LOC: ED 15:43 → INTOOBSV 16:22 → EDIP 16:22 → 3N 17:40 → DCLOUNGE 08-03 14:23 → UNDODISIN 08-03 14:35
PROVIDERS: ADMIT Internal Medicine; ATTEND Internal Medicine
DX: D64.9 Anemia, unspecified (principal); R62.7 Adult failure to thrive; I10 Essential (primary) hypertension; N17.0 Acute kidney failure with tubular necrosis; I25.10 Atherosclerotic heart disease of native coronary artery without angina pectoris; G25.81 Restless legs syndrome; E78.5 Hyperlipidemia, unspecified; J44.9 Chronic obstructive pulmonary disease, unspecified; I51.89 Other ill-defined heart diseases; R13.10 Dysphagia, unspecified; I25.2 Old myocardial infarction; E11.9 Type 2 diabetes mellitus without complications; Z86.73 Personal history of transient ischemic attack (TIA), and cerebral infarction without residual deficits; Z79.899 Other long term (current) drug therapy; Z87.891 Personal history of nicotine dependence
CPT/HCPCS: 36415; 36430; 71045; 80048; 80053; 80061; 82040; 83036; 83735; 84100; 84443; 85025; 86850; 86900; 86923; 93005; 97163; 97166; 99285; G0378; P9016

== ENCOUNTER 2020-08-08 12:11 | Emergency (ER) | payer MEDICARE ==
[~2020-08-08] VITALS: Ht 154.9 cm; Wt 47.5 kg
--- NOTE | 2020-08-08 12:54 | NUR ---
PRECEPTOR RN NOTE: US AT BEDSIDE.
--- NOTE | 2020-08-08 12:57 | NUR ---
PT PRESENTS TO ED WITH C/O LEFT CALF PAIN STARTING THURSDAY. STATES SHE HAD A BLOOD TRANSFUSION A WEEK AGO. MILD WEAKNESS NOTED TO LLE, CMS INTACT. PT A&O, RESPS EVEN AND UNLABORED, VSS, NADN. GERRI VELOZE AT BEDSIDE FOR EVAL.
--- NOTE | 2020-08-08 13:22 | NUR ---
US COMPLETE, AWAITING RESULTS AND DISPO.
[2020-08-08 13:43] VITALS: BP 119/46
--- NOTE | 2020-08-08 13:50 | NUR ---
PT EDUCATED ON DISCHARGE INSTRUCTIONS, FOLLOW-UP, AND RETURN CRITERIA, VERBALIZED UNDERSTANDING. PT A&O, RESPS EVEN AND UNLABORED, NADN. ACCOMPANIED BY DAUGHTER TO DISCHARGE VIA WHEELCHAIR, NO COMPLAINTS AT DISCHARGE.
== END 2020-08-08 13:57 | disposition home or self-care (01) ==
LOC: ED 12:30
DX: M79.661 Pain in right lower leg (principal); I10 Essential (primary) hypertension; E11.9 Type 2 diabetes mellitus without complications; J44.9 Chronic obstructive pulmonary disease, unspecified; I25.2 Old myocardial infarction; Z86.73 Personal history of transient ischemic attack (TIA), and cerebral infarction without residual deficits; Z87.891 Personal history of nicotine dependence
CPT/HCPCS: 99284

== ENCOUNTER 2020-09-14 11:08 | Observation (INO) | payer MEDICARE ==
[~2020-09-14] VITALS: Ht 152.4 cm; Wt 58.2 kg
--- NOTE | 2020-09-14 11:22 | NUR ---
Note jessica in EDM - 09/14/20 at 1512 by SRLY bib by daughter who works at [employer], daughter states patient can't keep food down for 36 hours, and thus hasn't taken bp/medications either. she went to GI Wed and they are ordering tests for colonscopy --> checking for GI bleed secondary to recently she had to have blood here for anemia. in bed rails up
[2020-09-14 11:58] LABS: BASOPHILS % (AUTO) 1 % (0-1); EOSINOPHILS % (AUTO) 0 % (1-7); LYMPHOCYTES % (AUTO) 8 % (22-44); MEAN CORPUSCULAR HEMOGLOBIN 21.6 pg (27.0-34.8); MEAN CORPUSCULAR HGB CONC 30.8 g/dL (32.4-35.8); MONOCYTES % (AUTO) 5 % (2-9); NEUTROPHILS % (AUTO) 86 % (42-75); PLATELET COUNT 363 x10^3/uL (130-400); RED BLOOD COUNT 4.84 x10^6/uL (3.82-5.3); RED CELL DISTRIBUTION WIDTH 23.2 % (9.6-15.2)
[2020-09-14] MEDS ORDERED: FAMOTIDINE 20 MG/2 ML IVPush ONE (12:00)
[2020-09-14] MEDS ORDERED: SODIUM CHLORIDE 0.9% 1,000ML IVBOLUS ONE (12:00)
[2020-09-14] MEDS ORDERED: SODIUM CHLORIDE FLUSH 10ML SYR IVF ONE (12:00)
[2020-09-14] MEDS ORDERED: ONDANSETRON 2MG/ML, 2ML IVPush ONE (12:00)
--- NOTE | 2020-09-14 12:06 | NUR ---
CATH'D PATIENT. DIFFICULTY STARTING FLOW, USED LIGHT MANUAL PRESSURE LOWER ABDOMEN THEN PATIENT HAD 300 DARK URINE OUT,CLOUDY, MALODOROUS
[2020-09-14 12:10] LABS: ALBUMIN 3.1 g/dL (3.4-5.0); ANION GAP 9 mmol/L (5-15); CALCIUM 9.3 mg/dL (8.5-10.1); CHLORIDE 104 mmol/L (98-107)
[2020-09-14 12:13] LABS: CREATININE 1.18 mg/dL (0.55-1.02)
[2020-09-14 12:14] LABS: ALANINE AMINOTRANSFERASE 41 U/L (12-78); ALKALINE PHOSPHATASE 88 U/L (45-117); BILIRUBIN,TOTAL 0.7 mg/dL (0.2-1.0); TOTAL PROTEIN 7.9 g/dL (6.4-8.2)
[2020-09-14 12:26] LABS: ANISOCYTOSIS 1+; HYPOCHROMIA 1+; MICROCYTOSIS 1+; OVALOCYTES 1+; TARGET CELLS 1+; TEAR DROPS 1+
[2020-09-14 12:27] LABS: <PLATELET ESTIMATE> ADEQUATE; <PLT MORPHOLOGY> NORMAL PLT MORPH
[2020-09-14 12:42] LABS: MICROSCOPIC INDICATED
[2020-09-14] MEDS ORDERED: LORazepam 2 MG/ML, 1ML IVPush ONE (13:30)
[2020-09-14] MEDS ORDERED: LORazepam 2 MG/ML, 1ML ONE (13:45)
[2020-09-14] MEDS ORDERED: ONDANSETRON 2MG/ML, 2ML ONE (13:45)
[2020-09-14] MEDS ORDERED: CEFTRIAXONE 1,000 MG in DEXTROSE 5% 50 ML IVPB ONE (14:00)
[2020-09-14] MEDS ORDERED: CEFTRIAXONE 1,000 MG ONE (14:21)
--- NOTE | 2020-09-14 14:35 | NUR ---
MICHELLE CALLED AND PT TO HAVE EGD DONE AT 15:30
[2020-09-14] MEDS ORDERED: CHLORHEXIDINE 15 ML UDC PO ONE (15:00)
--- NOTE | 2020-09-14 15:00 | NUR ---
TASK RN: RAPID COVID SWAB COLLECTED AND WALKED TO LAB.
--- NOTE | 2020-09-14 15:09 | NUR ---
OR LATER TODAY. NOW PATIENT TO Ezequiel [email or web address]. EGD 15:30. REPORT TO KYLIE
[2020-09-14] MEDS ORDERED: FENTANYL PF 100 MCG/2ML ONE (16:08)
[2020-09-14] MEDS ORDERED: MIDAZOLAM 1 MG/ML, 2ML ONE (16:08)
[2020-09-14] MEDS ORDERED: hydrALAzine 20 MG/ML, 1ML IV PRN (16:30)
[2020-09-14] MEDS ORDERED: FENTANYL PF 100 MCG/2ML IV PRN (16:30)
[2020-09-14] MEDS ORDERED: morphine SULFATE 10 MG/ML, 1ML IVPush PRN (16:30)
[2020-09-14] MEDS ORDERED: ONDANSETRON 2MG/ML, 2ML IVPush PRN ×2 (16:30→18:00)
[2020-09-14] MEDS ORDERED: PROMETHAZINE 25 MG/ML, 1ML IVPush PRN (16:30)
[2020-09-14] MEDS ORDERED: LABETALOL 5MG/ML, 20ML IV PRN (16:30)
[2020-09-14] MEDS ORDERED: PROPOFOL 10 MG/ML, 20ML ONE (16:40)
[2020-09-14] MEDS ORDERED: LACTATED RINGERS 1,000 ML IV SCH (17:00)
[2020-09-14] MEDS ORDERED: ACETAMINOPHEN 325 MG TABLET PO PRN (18:00)
[2020-09-14] MEDS ORDERED: OXYcodone 5 MG/5 ML ORAL.SOL UDC PO PRN (18:00)
[2020-09-14 20:00] VITALS: BP 133/66
[2020-09-14] MEDS ORDERED: ALBUTEROL/IPRATROPIUM 2.5MG/0.5MG, 3 ML IPPB PRN (20:30)
[2020-09-14] MEDS: CARVEDILOL 6.25 MG TABLET PO SCH (20:32)
[2020-09-14] MEDS: POTASSIUM CHLORIDE 20 MEQ in LACTATED RINGERS 1,000 ML IV SCH (20:32)
[2020-09-14] MEDS: TRAZODONE 50MG TABLET PO SCH (20:32)
[2020-09-14] MEDS: GABAPENTIN 300 MG CAPSULE PO SCH (20:32)
[2020-09-14] MEDS: PREGABALIN 25 MG CAPSULE PO SCH (20:32)
[2020-09-14] MEDS ORDERED: ROPINIROLE 0.5MG TABLET PO SCH (21:00)
[2020-09-15 00:49] VITALS: BP 154/72
[2020-09-15 05:37] LABS: BASOPHILS % (AUTO) 0 % (0-1); EOSINOPHILS % (AUTO) 1 % (1-7); LYMPHOCYTES % (AUTO) 9 % (22-44); MEAN CORPUSCULAR HEMOGLOBIN 21.4 pg (27.0-34.8); MEAN CORPUSCULAR HGB CONC 30.8 g/dL (32.4-35.8); MEAN PLATELET VOLUME 8.1 fL (7.4-10.4); MONOCYTES % (AUTO) 6 % (2-9); NEUTROPHILS % (AUTO) 83 % (42-75); PLATELET COUNT 304 x10^3/uL (130-400); RED BLOOD COUNT 4.49 x10^6/uL (3.82-5.3); RED CELL DISTRIBUTION WIDTH 23.8 % (9.6-15.2)
[2020-09-15 05:47] LABS: ANION GAP 5 mmol/L (5-15); CALCIUM 8.5 mg/dL (8.5-10.1); CHLORIDE 109 mmol/L (98-107); CREATININE 0.89 mg/dL (0.55-1.02)
[2020-09-15] MEDS: POTASSIUM CHLORIDE 20 MEQ in LACTATED RINGERS 1,000 ML IV SCH (06:12)
[2020-09-15 06:31] VITALS: BP 160/70
[2020-09-15] MEDS ORDERED: ROPINIROLE 1MG TABLET PO SCH (10:31)
[2020-09-15] MEDS: CARVEDILOL 6.25 MG TABLET PO SCH ×2 (10:46→21:20)
[2020-09-15] MEDS: FLUCONAZOLE 100 MG TABLET PO SCH (10:47)
[2020-09-15] MEDS: PREGABALIN 25 MG CAPSULE PO SCH ×2 (10:48→21:20)
[2020-09-15] MEDS: ROPINIROLE 1MG TABLET PO SCH ×2 (11:03→21:20)
[2020-09-15 12:22] VITALS: BP 101/55
[2020-09-15] MEDS ORDERED: CEFTRIAXONE 1,000 MG in DEXTROSE 5% 50 ML IVPB SCH ×2 (14:00→20:00)
[2020-09-15 18:55] VITALS: BP 129/56
[2020-09-15] MEDS: GABAPENTIN 300 MG CAPSULE PO SCH (21:20)
[2020-09-15] MEDS: TRAZODONE 50MG TABLET PO SCH (21:20)
[2020-09-15 23:46] VITALS: BP 112/51
[2020-09-16 06:42] LABS: CLOSTRIDIUM DIFFICILE ANTIGEN NEGATIVE; CLOSTRIDIUM DIFFICILE TOXIN NEGATIVE (Negative)
[2020-09-16 07:04] VITALS: BP 157/63
[2020-09-16] MEDS: CARVEDILOL 6.25 MG TABLET PO SCH (09:43)
[2020-09-16] MEDS: FLUCONAZOLE 100 MG TABLET PO SCH (09:43)
[2020-09-16] MEDS: ROPINIROLE 1MG TABLET PO SCH (09:43)
[2020-09-16] MEDS: PREGABALIN 25 MG CAPSULE PO SCH (09:43)
[2020-09-16 12:31] LABS: BASOPHILS % (AUTO) 1 % (0-1); EOSINOPHILS % (AUTO) 2 % (1-7); LYMPHOCYTES % (AUTO) 10 % (22-44); MEAN CORPUSCULAR HEMOGLOBIN 21.6 pg (27.0-34.8); MEAN CORPUSCULAR HGB CONC 30.9 g/dL (32.4-35.8); MEAN PLATELET VOLUME 7.9 fL (7.4-10.4); MONOCYTES % (AUTO) 4 % (2-9); NEUTROPHILS % (AUTO) 84 % (42-75); PLATELET COUNT 257 x10^3/uL (130-400); RED BLOOD COUNT 4.04 x10^6/uL (3.82-5.3); RED CELL DISTRIBUTION WIDTH 23.8 % (9.6-15.2)
[2020-09-16 12:50] LABS: ACANTHOCYTES 1+; ANISOCYTOSIS 1+; ECHINOCYTES 1+; HYPOCHROMIA 1+; MICROCYTOSIS 2+; OVALOCYTES 1+
[2020-09-16 12:51] LABS: TEAR DROPS 1+
[2020-09-16 12:52] LABS: <PLATELET ESTIMATE> ADEQUATE; <PLT MORPHOLOGY> NORMAL PLT MORPH
[2020-09-16 13:15] VITALS: BP 113/55
[2020-09-16] MEDS ORDERED: FOSF3PAC PO (13:42)
== END 2020-09-16 16:54 | disposition home or self-care (01) ==
LOC: ED 12:08 → INTOOBSV 14:35 → 3N 14:35 → SUATTDRO 15:11 → 3N 15:28 → ED 16:09 → 3N 09-15 23:56 → UNDODISIN 09-16 16:54
PROVIDERS: ADMIT Family Medicine; ATTEND Internal Medicine
DX: K22.2 Esophageal obstruction (principal); Z20.822 Contact with and (suspected) exposure to COVID-19; K22.8 Other specified diseases of esophagus; J96.21 Acute and chronic respiratory failure with hypoxia; J44.9 Chronic obstructive pulmonary disease, unspecified; I13.0 Hypertensive heart and chronic kidney disease with heart failure and stage 1 through stage 4 chronic kidney disease, or unspecified chronic kidney disease; E11.22 Type 2 diabetes mellitus with diabetic chronic kidney disease; I50.9 Heart failure, unspecified; N18.30 Chronic kidney disease, stage 3 unspecified; I25.2 Old myocardial infarction; R11.10 Vomiting, unspecified; K20.90 Esophagitis, unspecified without bleeding; D63.1 Anemia in chronic kidney disease; E43 Unspecified severe protein-calorie malnutrition; I25.10 Atherosclerotic heart disease of native coronary artery without angina pectoris; G25.81 Restless legs syndrome; E78.5 Hyperlipidemia, unspecified; E87.6 Hypokalemia; E86.0 Dehydration; N39.0 Urinary tract infection, site not specified; B95.5 Unspecified streptococcus as the cause of diseases classified elsewhere; B96.89 Other specified bacterial agents as the cause of diseases classified elsewhere; B96.1 Klebsiella pneumoniae [K. pneumoniae] as the cause of diseases classified elsewhere; F10.21 Alcohol dependence, in remission; R62.7 Adult failure to thrive; R64 Cachexia; I69.351 Hemiplegia and hemiparesis following cerebral infarction affecting right dominant side; I69.391 Dysphagia following cerebral infarction; Z66 Do not resuscitate; Z87.891 Personal history of nicotine dependence; Z63.8 Other specified problems related to primary support group; Z98.42 Cataract extraction status, left eye; Z99.81 Dependence on supplemental oxygen; Z79.899 Other long term (current) drug therapy
CPT/HCPCS: 36415; 36600; 43247; 80048; 80053; 81001; 82803; 82962; 83690; 83735; 84100; 85025; 87077; 87086; 87186; 87324; 87635; 92610; 93005; 96365; 96366; 96367; 96375; 99284; G0378; J0696; J2060; J2250; J2405; J2704; J3010; J3480; J7030; J7120; 96361; 96374; 99285